=== PATIENT | female | born 2000 | race African-American/Black ===

== ENCOUNTER 2024-04-23 08:50 | Emergency (ER) | payer BC ==
[2024-04-23] MEDS ORDERED: methylPREDNISolone Sod Succ/PF 125 MG/2 ML VIAL ONE (10:00)
[2024-04-23 10:14] LABS: #Basophils Less than 0.03 10x3/uL (0.0-0.2); %Basophils 0.1 % (0.0-1.0); %Eosinophils 0.7 % (0.0-10.0); %Lymphocytes 16.8 % (21.0-51.0); %Monocytes 2.3 % (0.0-10.0); %Neutrophils 79.7 % (42.0-75.0); Hematocrit 38.1 % (36.0-47.0); Hemoglobin 12.9 g/dL (12.0-16.0); Mean Corpuscular HGB CONC 33.9 g/dL (32.0-36.0); Mean Corpuscular Hemoglobin 28.4 pg (27.0-31.0); Mean Corpuscular Volume 83.9 fL (78.0-98.0); Mean Platelet Volume 10.7 fL (7.4-10.4); Platelet Count 202 10x3/uL (130-400); Red Blood Cell (RBC) Count 4.54 mill/uL (4.20-5.40)
[2024-04-23 10:27] LABS: BHCG - Serum Negative (NEGATIVE); Pregs Control Background? CLEAR/WHITE (CLR/WHITE); Pregs Control Bar Appear? YES (CONTROL BAR)
[2024-04-23 10:35] LABS: CRP,High Sensitivity (Inhouse) 9.36 mg/dL (< or = 0.5)
[2024-04-23 10:36] LABS: ALT (SGPT) 39 U/L (8-55); AST (SGOT) 27 U/L (5-34); Albumin 3.6 g/dL (3.5-5.0); Alkaline Phosphatase 65 U/L (40-110); Anion Gap 14 mmol/L (10-20); BUN (Urea Nitrogen) 10 mg/dL (7.0-18.7); Bilirubin, Total 0.3 mg/dL (0.2-1.2); Calc. Creatinine Clearance 0 mL/min (70-130); Calcium 8.9 mg/dL (7.8-10.44); Carbon Dioxide 19 mmol/L (22-29); Chloride 106 mmol/L (98-107); Estimated GFR 106; Globulin 3.5 g/dL (2.4-3.5); Glucose 110 mg/dL (70-105); Potassium 3.9 mmol/L (3.5-5.1); Protein, Total 7.1 g/dL (6.0-8.3); Sodium 135 mmol/L (136-145)
[2024-04-23 11:06] LABS: Bacteria/HPF None Seen HPF (None Seen); Bilirubin Negative (Negative); Blood, Urine Negative (Negative); CAUTI Indications for Culture < 2yrs of age; Clarity Clear (Clear); Glucose, Urine (Dipstick) Normal (Negative); Ketone, Urine Negative (Negative); Leukocyte Negative Leu/uL (Negative); Nitrite Negative (Negative); Protein, Urine (Dipstick) Negative (Neg-Trace); RBC/HPF 0-3 HPF (0-3); Specific Gravity, Urine 1.006 (1.002-1.036); Squamous Epithelial 0-3 HPF (0-3); Urobilinogen Normal mg/dL (Less than 2); WBC/HPF 0-3 HPF (0-3)
[2024-04-23 11:08] LABS: Urine Culture Reflex Yes Yes
== END 2024-04-23 12:38 | disposition home or self-care (01) ==
LOC: ERS 08:50
DX: M25.542 Pain in joints of left hand (principal); M25.541 Pain in joints of right hand; M25.572 Pain in left ankle and joints of left foot; M25.571 Pain in right ankle and joints of right foot; M25.552 Pain in left hip; M25.551 Pain in right hip; M25.532 Pain in left wrist; M25.531 Pain in right wrist; M25.432 Effusion, left wrist; M25.431 Effusion, right wrist; M79.89 Other specified soft tissue disorders; F17.290 Nicotine dependence, other tobacco product, uncomplicated
CPT/HCPCS: 80053; 81001; 84703; 85025; 86141; 87086; 96374; J2919